=== PATIENT | female | born 1995 | race Caucasian/White ===

== ENCOUNTER 2017-03-03 15:11 | Emergency (ER) | payer BC ==
[2017-03-03] MEDS ORDERED: Ondansetron 8 MG Tab.DIS PO ONE (16:01)
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
[2017-03-03] MEDS ORDERED: Ibuprofen 600 MG Tab PO ONE (17:06)
[2017-03-03 18:51] VITALS: BP 90/60
[2017-03-03] MEDS ORDERED: Ondansetron 4 MG Tab.DIS PO ONE (18:53)
[2017-03-03] MEDS ORDERED: traMADol 50 MG Tab PO ONE (18:53)
== END 2017-03-03 18:48 | disposition home or self-care (01) ==
LOC: FB.ED 15:11
DX: S02.0XXA Fracture of vault of skull, initial encounter for closed fracture (principal); S02.119A Unspecified fracture of occiput, initial encounter for closed fracture; Z88.0 Allergy status to penicillin; Z88.8 Allergy status to other drugs, medicaments and biological substances; Z79.899 Other long term (current) drug therapy; W26.8XXA Contact with other sharp object(s), not elsewhere classified, initial encounter; S01.01XA Laceration without foreign body of scalp, initial encounter
CPT/HCPCS: 12002; 70450; 99284; A9270